=== PATIENT | male | born 1980 | race Caucasian/White ===

== ENCOUNTER 2018-04-03 13:05 | Emergency (ER) | payer OTHER ==
[2018-04-03 13:55] LABS: Basophils # (A) 0.1 k/uL (0-0.2); Basophils % (A) 1 %; Eosinophils # (A) 0.4 k/uL (0-0.7); Eosinophils % (A) 5 %; HCT 43.1 % (39.0-53.0); HGB 14.8 gm/dL (13.0-17.5); Lymphocytes # (A) 1.5 k/uL (1.0-4.8); Lymphocytes % (A) 18 %; MCH 30.9 pg (25.0-35.0); MCHC 34.2 g/dL (31.0-37.0); MCV 90.4 fL (80.0-100.0); Mean Platelet Volume 6.6; Monocytes # (A) 0.5 k/uL (0-1.0); Monocytes % (A) 6 %; Neutrophils # (A) 5.6 k/uL (1.3-7.7); Neutrophils % (A) 69 %; Platelet Count 232 k/uL (150-450); RBC 4.77 m/uL (4.30-5.90); RDW 13.2 % (11.5-15.5); WBC 8.2 k/uL (3.8-10.6)
[2018-04-03 14:11] LABS: ALT 35 U/L (21-72); AST 35 U/L (17-59); Albumin 4.7 g/dL (3.5-5.0); Alkaline Phosphatase 61 U/L (38-126); Anion Gap 14 mmol/L; Blood Urea Nitrogen 17 mg/dL (9-20); Calcium 9.5 mg/dL (8.4-10.2); Carbon Dioxide 18 mmol/L (22-30); Chloride 109 mmol/L (98-107); Glucose 109 mg/dL (74-99); Potassium 4.7 mmol/L (3.5-5.1); Sodium 141 mmol/L (137-145); Total Bilirubin 0.4 mg/dL (0.2-1.3); Total Protein 7.4 g/dL (6.3-8.2)
--- NOTE | 2018-04-03 15:02 | ED ---
General Adult HPI - General Chief complaint: Back Pain/Injury Stated complaint: poss kidney stones Time Seen by Provider: 04/03/18 14:05 Source: patient Mode of arrival: ambulatory Limitations: no limitations - History of Present Illness Initial comments: This is a 37-year-old male with past medical history of daily alcohol use and hypertension who presents today for chief complaint of left side pain. Patient states that this morning around 8:30-9 am he woke up going about his normal morning routine, after the shower he noticed a sharp pain in his left side, that radiates somewhat to the left side of his back. He states this pain sharp in nature and increases with movement and occasionally breathing. Patient does admit to having fallen the day before but he caught himself with his hands. Pt denies any trauma to the head or extremities, LOC or CP prior to fall he states it was mechanical from tripping. Patient denies any associated symptoms today including fever, chills, nausea, vomiting, diarrhea, chest pain, palpitations, and shortness of breath, any changes in bowel movements or stool or abdominal pain. Patient states that he has never experienced pain like this before. She presented to his family practitioner this morning Dr. Gross who thought the patient might have possible kidney stones and sent him to the emergency room for further workup. CBC and CMP were obtained and advanced triage. Patient's vital signs stable upon presentation. Patient denies hematuria, constipation or diarrhea, headaches or visual changes, or any other complaints. - Related Data Home Medications Medication Instructions Recorded Confirmed Atorvastatin [Lipitor] 20 mg PO HS 04/03/18 04/03/18 Meloxicam [Mobic] 15 mg PO DAILY PRN 04/03/18 04/03/18 Verapamil HCl [Verapamil ER] 180 mg PO HS 04/03/18 04/03/18 Zonisamide [Zonegran] 50 mg PO HS 04/03/18 04/03/18 Previous Rx's Medication Instructions Recorded Acetaminophen Tab [Tylenol Tab] 500 mg PO Q6H #20 tablet 04/03/18 Allergies Allergy/AdvReac Type Severity Reaction Status Date / Time No Known Allergies Allergy Verified 04/03/18 14:11 Review of Systems ROS Statement: Those systems with pertinent positive or pertinent negative responses have been documented in the HPI. ROS Other: All systems not noted in ROS Statement are negative. Constitutional: Denies: fever, chills Respiratory: Denies: dyspnea Cardiovascular: Denies: chest pain, palpitations, dyspnea on exertion Gastrointestinal: Reports: as per HPI. Denies: nausea, vomiting, diarrhea, constipation, hematemesis, melena Genitourinary: Reports: dysuria. Denies: urgency, frequency, hematuria Musculoskeletal: Reports: as per HPI Skin: Denies: rash Neurological: Denies: weakness, numbness, paresthesias, abnormal gait Past Medical History Past Medical History: Hypertension History of Any Multi-Drug Resistant Organisms: None Reported Past Surgical History: Orthopedic Surgery Additional Past Surgical History / Comment(s): left arm surgery Past Psychological History: Depression Smoking Status: Current some day smoker Past Alcohol Use History: Daily Past Drug Use History: None Reported General Exam - General Exam Comments Initial Comments: General: The patient is awake and alert, in no distress, and does not appear acutely ill. Eye: Pupils are equal, round and reactive to light, extra-ocular movements are intact. No nystagmus. There is normal conjunctiva bilaterally. No signs of icterus. Ears, nose, mouth and throat: There are moist mucous membranes and no oral lesions. Neck: The neck is supple, there is no tenderness or JVD. Cardiovascular: There is a regular rate and rhythm. No murmur, rub or gallop is appreciated. Breathe sounds are audible over the left lung. Equal respiratory expansion. Respiratory: Lungs are clear to auscultation, respirations are non-labored, breath sounds are equal. No wheezes, stridor, rales, or rhonchi. Gastrointestinal: Obese, abdomen. No rashes or lesions of the overlying skin. There is tenderness to palpation of the left flank near the rib cage. The the tenderness on palpation is reproducible, and the patient can localize the pain to specific region along the left flank and rib cage. The remaining 3 quadrants as well as the epigastric region are non-tender without masses or organomegaly noted. (-) rovsing, muphys, mcburneys, psoas, obturator signs. (-) CVA tenderness b/l. There is no rebound or guarding present. Bowel sounds are unremarkable. ] Neurological: A&O x 3. CN II-XII intact, There are no obvious motor or sensory deficits. Coordination appears grossly intact. Speech is normal. Skin: Skin is warm and dry and no rashes or lesions are noted. Psychiatric: Grumpy, appropriate mood & affect, normal judgment. Limitations: no limitations Course Vital Signs 04/03/18 04/03/18 04/03/18 13:19 16:24 17:54 Temperature 98.3 F 98.2 F 98.1 F Pulse Rate 101 H 88 72 Respiratory 18 16 16 Rate Blood Pressure 146/81 151/88 130/78 O2 Sat by Pulse 99 98 98 Oximetry Medical Decision Making - Medical Decision Making This is a 37-year-old male with past medical history of daily alcohol use and hypertension who presents today for chief complaint of left side pain. Patient states that this morning around 8:30-9 am he woke up going about his normal morning routine, after the shower he noticed a sharp pain in his left side, that radiates somewhat to the left side of his back. He states this pain sharp in nature and increases with movement and occasionally breathing. Patient does admit to having fallen the day before but he caught himself with his hands. Pt denies any trauma to the head or extremities, LOC or CP prior to fall he states it was mechanical from tripping. Patient denies any associated symptoms today including fever, chills, nausea, vomiting, diarrhea, chest pain, palpitations, and shortness of breath, any changes in bowel movements or stool or abdominal pain. Patient states that he has never experienced pain like this before. She presented to his family practitioner this morning Dr. Gross who thought the patient might have possible kidney stones and sent him to the emergency room for further workup. CBC and CMP were obtained and advanced triage. Patient's vital signs stable upon presentation. Patient denies hematuria, constipation or diarrhea, headaches or visual changes, or any other complaints. Physical exam is performed revealing Obese, abdomen. No rashes or lesions of the overlying skin of the abdomen. There is tenderness to palpation of the left flank and along the left lower rib cage. The pain is reproducible and the patient can localize the pain, pointing the same region along the left lower rib cage each time. The remaining 3 quadrants and the eipigastric region are non-tender without masses or organomegaly noted. (-) rovsing, muphys, mcburneys, psoas, obturator signs. (-) CVA tenderness. There is no rebound or guarding present. Bowel sounds are unremarkable. Cardiovascular and pulmonary exam reveal a regular rate and rhythm. No murmur, rub or gallop is appreciated. Lungs are clear to auscultation, respirations are non-labored, breath sounds are equal. No wheezes, stridor, rales, or rhonchi. Breathe sounds are audible over the left lung. Equal respiratory expansion. CBC and CMP returned within normal limits. UA returned within normal limits and EKG was obtained revealing normal sinus rhythm. Abdominal and chest x-ray returned without any acute abdominal or cardiopulmonary processes. He was given 650 mg of Tylenol by mouth for pain relief. Upon reevaluation he stated that the pain experienced some relief after the Tylenol. I discussed case in detail with who feels due to the negative workup and because the pain is reproducible and point localized the patient is stable for discharge, with close primary care follow-up. The patient was thoroughly educated on warning signs of acute abdomen and told to please return to the emergency department if his symptoms do worsen or change. Patient agreed with this plan. Patient was discharged with prescription for 500mg Tylenol for pain relief. She discharged in stable condition - Lab Data Result diagrams: 04/03/18 13:46 04/03/18 13:46 Lab Results 04/03/18 04/03/18 04/03/18 Range/Units 13:46 13:46 15:53 WBC 8.2 (3.8-10.6) k/uL RBC 4.77 (4.30-5.90) m/uL Hgb 14.8 (13.0-17.5) gm/dL Hct 43.1 (39.0-53.0) % MCV 90.4 (80.0-100.0) fL MCH 30.9 (25.0-35.0) pg MCHC 34.2 (31.0-37.0) g/dL RDW 13.2 (11.5-15.5) % Plt Count 232 (150-450) k/uL Neutrophils % 69 % Lymphocytes % 18 % Monocytes % 6 % Eosinophils % 5 % Basophils % 1 % Neutrophils # 5.6 (1.3-7.7) k/uL Lymphocytes # 1.5 (1.0-4.8) k/uL Monocytes # 0.5 (0-1.0) k/uL Eosinophils # 0.4 (0-0.7) k/uL Basophils # 0.1 (0-0.2) k/uL Sodium 141 (137-145) mmol/L Potassium 4.7 (3.5-5.1) mmol/L Chloride 109 H (98-107) mmol/L Carbon Dioxide 18 L (22-30) mmol/L Anion Gap 14 mmol/L BUN 17 (9-20) mg/dL Creatinine 0.86 (0.66-1.25) mg/dL Est GFR (CKD-EPI)AfAm >90 (>60 ml/min/1.73 sqM) Est GFR (CKD-EPI)NonAf >90 (>60 ml/min/1.73 sqM) Glucose 109 H (74-99) mg/dL Calcium 9.5 (8.4-10.2) mg/dL Total Bilirubin 0.4 (0.2-1.3) mg/dL AST 35 (17-59) U/L ALT 35 (21-72) U/L Alkaline Phosphatase 61 (38-126) U/L Total Protein 7.4 (6.3-8.2) g/dL Albumin 4.7 (3.5-5.0) g/dL Urine Color Yellow Urine Appearance Clear (Clear) Urine pH 5.5 (5.0-8.0) Ur Specific [place] 1.020 (1.001-1.035) Urine Protein Negative (Negative) Urine Glucose (UA) Negative (Negative) Urine Ketones Negative (Negative) Urine Blood Negative (Negative) Urine Nitrite Negative (Negative) Urine Bilirubin Negative (Negative) Urine Urobilinogen <2.0 (<2.0) mg/dL Ur Leukocyte Esterase Negative (Negative) Disposition Clinical Impression: Costal margin pain, Flank pain Disposition: HOME SELF-CARE Condition: Good Instructions: Costochondritis (ED), Flank Pain (ED) Additional Instructions: Please use medication as discussed. Please follow-up with family doctor in the next 2 days of symptoms have not improved. Please return to emergency room if the symptoms increase or worsen or for any other concerns. Prescriptions: Acetaminophen Tab [Tylenol Tab] 500 mg PO Q6H #20 tablet Is patient prescribed a controlled substance at d/c from ED?: No Referrals: Luan Gross MD [Primary Care Provider] - 1-2 days Time of Disposition: 17:37
--- NOTE | 2018-04-03 15:24 | XR ---
EXAMINATION TYPE: XR chest 2V DATE OF EXAM: 04/03/2018 COMPARISON: NONE HISTORY: Left-sided pain TECHNIQUE: Frontal and lateral views of the chest are obtained. FINDINGS: There is no focal air space opacity, pleural effusion, or pneumothorax seen. The cardiac silhouette size is within normal limits. The osseous structures are intact. Question spinal curvatu re. IMPRESSION: No acute cardiopulmonary process.
--- NOTE | 2018-04-03 15:25 | XR ---
Abdomen HISTORY: Left-sided pain View of the abdomen on 2 images There is a spinal curvature is suspected. There are air-fluid levels without bowel distention. Lung b ases are clear. No pneumoperitoneum. Probable phleboliths within the pelvis. IMPRESSION: Correlate for enteritis, ileus.
[2018-04-03 16:00] LABS: Appearance,Urine Clear (Clear); Bilirubin,Urine Negative (Negative); Blood,Urine Negative (Negative); Color,Urine Yellow; Glucose,Urine (UA) Negative (Negative); Ketones,Urine Negative (Negative); Leukocyte Esterase,Urine Negative (Negative); Nitrite,Urine Negative (Negative); PH, Urine 5.5 (5.0-8.0); Protein,Urine Negative (Negative); Urobilinogen,Urine <2.0 mg/dL (<2.0)
[2018-04-03] MEDS ORDERED: ACETAMINOPHEN TAB 325 MG TAB PO STA (16:20)
[2018-04-03 16:32] VITALS: RESP 16
[2018-04-03 17:55] VITALS: BP 130/78; PULSE 72; TEMP 98.1
== END 2018-04-03 17:54 | disposition home or self-care (01) ==
LOC: EC 13:05
DX: R07.81 Pleurodynia (principal); M54.9 Dorsalgia, unspecified; R10.9 Unspecified abdominal pain; I10 Essential (primary) hypertension; F17.200 Nicotine dependence, unspecified, uncomplicated; Z79.899 Other long term (current) drug therapy
CPT/HCPCS: 36415; 71046; 74018; 80053; 81003; 85025; 93005; 99283

== ENCOUNTER → 2018-04-04 | Outpatient (CLI) | payer OTHER ==
--- NOTE | 2018-04-04 16:03 | XR ---
EXAMINATION TYPE: XR ribs LT DATE OF EXAM: 04/04/2018 COMPARISON: 04/03/2018 HISTORY: Left lower rib pain with no known injury TECHNIQUE: Frontal and lateral views of the left ribs were obtained. FINDINGS: There is a nondisplaced fracture of the anterior lateral margin of the left 11th rib seen o n a single view only. Remaining left ribs appear unremarkable. No chronic healed callused fracture de formity seen. Visualized portion of the left lung appears well aerated. IMPRESSION: Acute nondisplaced fracture of the anterolateral margin of rib 11 on the left.
== END | disposition home or self-care (01) ==
LOC: RADXRMAIN 14:57
PROVIDERS: ATTEND Family Medicine
DX: S22.32XA Fracture of one rib, left side, initial encounter for closed fracture (principal)

== ENCOUNTER 2018-04-15 01:03 | Emergency (ER) | payer OTHER ==
[2018-04-15 01:18] VITALS: BP 133/78; PULSE 107; RESP 20; TEMP 98
--- NOTE | 2018-04-15 01:51 | ED ---
Alcohol HPI - General Chief Complaint: Alcohol Stated Complaint: ETOH Time Seen by Provider: 04/15/18 01:23 Source: patient, EMS Mode of arrival: EMS Limitations: no limitations - History of Present Illness Initial Comments: 37-year-old male patient presents to the emergency department today due to alcohol intoxication. Patient was found stumbling through the streets. He was picked up. Patient was unable to lie he was brought here. States that he feels fine and would like to be discharged. He denies any current physical symptoms or concerns. Does admit to drinking alcohol today. Denies any drug use. Denies any suicidal or homicidal ideation. Patient denies any recent rash , fever, chills, shortness breath, chest pain, abdominal pain, nausea, vomiting , diarrhea, constipation, back pain, numbness, tingling, dizziness, weakness, hematuria, dysuria, urinary urgency, urinary frequency, headache, visual changes , or any other complaints. - Related Data Home Medications Medication Instructions Recorded Confirmed Atorvastatin [Lipitor] 20 mg PO HS 04/03/18 04/03/18 Meloxicam [Mobic] 15 mg PO DAILY PRN 04/03/18 04/03/18 Verapamil HCl [Verapamil ER] 180 mg PO HS 04/03/18 04/03/18 Zonisamide [Zonegran] 50 mg PO HS 04/03/18 04/03/18 Previous Rx's Medication Instructions Recorded Acetaminophen Tab [Tylenol Tab] 500 mg PO Q6H #20 tablet 04/03/18 Allergies Allergy/AdvReac Type Severity Reaction Status Date / Time No Known Allergies Allergy Verified 04/03/18 14:11 Review of Systems ROS Statement: Those systems with pertinent positive or pertinent negative responses have been documented in the HPI. ROS Other: All systems not noted in ROS Statement are negative. Past Medical History Past Medical History: Hypertension History of Any Multi-Drug Resistant Organisms: None Reported Past Surgical History: Orthopedic Surgery Additional Past Surgical History / Comment(s): left arm surgery Past Psychological History: Depression Smoking Status: Current some day smoker Past Alcohol Use History: Daily Past Drug Use History: None Reported General Exam Limitations: no limitations General appearance: alert, in no apparent distress, other (This is a well- developed, well-nourished adult male patient in no acute distress. Does appear to be quite intoxicated. Temperature is 98.0F, pulse 107, respirations 20, blood pressure 133/78, pulse ox 96% on room air.) Eye exam: Present: normal appearance, PERRL, EOMI. Absent: scleral icterus, conjunctival injection, periorbital swelling ENT exam: Present: normal exam, normal oropharynx, mucous membranes moist Respiratory exam: Present: normal lung sounds bilaterally. Absent: respiratory distress, wheezes, rales, rhonchi, stridor Cardiovascular Exam: Present: regular rate, normal rhythm, normal heart sounds. Absent: systolic murmur, diastolic murmur, rubs, gallop, clicks GI/Abdominal exam: Present: soft, normal bowel sounds. Absent: distended, tenderness, guarding, rebound, rigid Neurological exam: Present: alert, oriented X3, CN II-XII intact Psychiatric exam: Present: normal affect, normal mood Skin exam: Present: warm, dry, intact, normal color. Absent: rash Course Vital Signs 04/15/18 01:08 Temperature 98.0 F Pulse Rate 107 H Respiratory 20 Rate Blood Pressure 133/78 O2 Sat by Pulse 96 Oximetry Medical Decision Making - Medical Decision Making 37-year-old male patient presents emergency department today due to alcohol intoxication. Patient was brought in by EMS because he was found stumbling on the streets. Patient denies any current physical symptoms or concerns. Patient did have cousin coming to pick him up. He'll be discharged home. He is instructed to avoid alcohol use in the future. Return parameters were discussed in detail. He verbalizes understanding and agrees with this plan. Disposition Clinical Impression: Alcohol intoxication Disposition: HOME SELF-CARE Condition: Good Instructions: Alcohol Intoxication (ED) Additional Instructions: Avoid drinking alcohol and the future. Follow-up with your primary care physician for recheck in 1-2 days. Return here immediately for any new, worsening, or concerning symptoms. Is patient prescribed a controlled substance at d/c from ED?: No Referrals: Luan Gross MD [Primary Care Provider] - 1-2 days Time of Disposition: 01:51
== END 2018-04-15 02:02 | disposition home or self-care (01) ==
LOC: EC 01:03
DX: F10.129 Alcohol abuse with intoxication, unspecified (principal); I10 Essential (primary) hypertension; F17.200 Nicotine dependence, unspecified, uncomplicated; Z79.899 Other long term (current) drug therapy
CPT/HCPCS: 99284

== ENCOUNTER → 2018-11-16 | Outpatient (CLI) | payer OTHER ==
--- NOTE | 2018-11-22 09:49 | P.ARTDOP ---
Arterial Doppler LOWER EXTREMITY ARTERIAL DOPPLER: DATE OF SERVICE: 11/16/2018 Reason for study: Cold left foot. Doppler waveforms: Multiphasic bilaterally throughout. Pulse volume recording: []. Pressure gradients: None. Ankle-brachial indices: Greater than 1 bilaterally. Toe pressures: 137 on the right, 132 on the left Impression: Normal study.
== END | disposition home or self-care (01) ==
LOC: RADUSWWP 13:18
PROVIDERS: ATTEND Family Medicine
DX: I73.89 Other specified peripheral vascular diseases (principal)
CPT/HCPCS: 93922; 93923

== ENCOUNTER → 2019-06-23 | Outpatient (CLI) | payer OTHER ==
--- NOTE | 2019-06-27 08:10 | PE ---
EXAMINATION TYPE: PET brain metabolic evaluation DATE OF EXAM: 06/23/2019 COMPARISON: CT brain May 19, 2016. MRI brain October 24, 2015. Outside MRI brain report May 14, 2019 HISTORY: Abnormal brain MRI. TECHNIQUE: Following the intravenous administration of 10.03 mCi of F-18 FDG, images are performed f rom the top of skull to the skull base . Images are reviewed on the computer in the coronal, axial, and sagittal planes. Reconstructed rotating images are created on independent workstation and review ed on the computer. A localization and attenuation correction CT is performed in conjunction with t he PET scan. SCAN: Initial Scan FINDINGS: BRAIN: There is lack of hypermetabolic uptake in the left cerebellar hemisphere corresponding to are a of atrophy described on outside MRI report and also seen on 2016 CT and MRI studies presumed relate d to congenital or remote insult. Remainder brain parenchyma shows symmetric satisfactory hypermetabo lic uptake. OTHER CT: Overall stable brain parenchyma findings from prior CT May 19, 2016. Occasional tiny muc ous retention cyst or polyp in the inferior left maxillary sinus is seen. There is mild mucosal thick ening inferiorly also present. Patchy opacification of the left ethmoid sinuses is also noted. IMPRESSION: As above.
== END | disposition home or self-care (01) ==
LOC: RADPETMAIN 10:15
PROVIDERS: ATTEND Psychiatry & Neurology Neurology
DX: R94.02 Abnormal brain scan (principal)
CPT/HCPCS: 78608; A9552

== ENCOUNTER → 2020-09-19 | Day surgery (SDC) | payer OTHER ==
[2020-09-18 10:26] VITALS: BMI 29.5
[~2020-09-19] MED LIST: LACTATED RINGERS 1,000 ML IV ONE; LACTATED RINGERS 1,000 ML IV SCH; LIDOCAINE 1% (10MG/ML) FOR IV START INTRADERMA ONE; PROPOFOL 10 MG/ML 20 ML VIAL IV ONE
[2020-09-19 07:23] VITALS: TEMP 97.9
--- NOTE | 2020-09-19 08:34 | P.OP ---
Date of Procedure: 09/19/20 Preoperative Diagnosis: Gi bleeding Postoperative Diagnosis: Gastritis Procedure(s) Performed: EGD with biopsy and colonoscopy Anesthesia: MAC Surgeon: Brandon Marcus Estimated Blood Loss (ml): 0 Condition: stable Disposition: same day Description of Procedure: Patient was Endo suite placed in left lateral decubitus position underwent sedation per department of anesthesia scope was passed from the oropharynx down the esophagus under direct visualization with ease. Passed through the stomach and the first and second portion of the duodenum were no abnormalities were noted it was withdrawn to the stomach retroflexed ample time was allowed for the stomach to insufflate and no significant hiatal hernia was noted all bodies and richardson of the stomach were inspected there was mild gastritis in the antrum biopsy of this was taken. Scope was withdrawn to the GE junction where there is no gross abnormalities were noted. The scope was then slowly withdrawn through the esophagus being sure to visualize the esophagus on the way out. Patient was then turned rectal exam was performed no gross abnormalities were noted scope was passed from the rectum to the cecum with ease the terminal ileum was intubated and no significant abnormalities are noted within the terminal ileum the scope was then slowly withdrawn being sure to visualize all richardson of the colon on the way out there was no abnormalities seen. Patient tolerated the procedure well no apparent complications
[2020-09-19 08:40] VITALS: BP 126/77; PULSE 70; RESP 16
== END | disposition home or self-care (01) ==
LOC: ORWHC2ENDO 07:03
PROVIDERS: ATTEND Student in an Organized Health Care Education/Training Program
DX: K29.51 Unspecified chronic gastritis with bleeding (principal); I10 Essential (primary) hypertension; F32.9 Major depressive disorder, single episode, unspecified; R56.9 Unspecified convulsions; Z87.891 Personal history of nicotine dependence; Z79.899 Other long term (current) drug therapy
CPT/HCPCS: 45378; 43239; 88305; 88342; J2704

== ENCOUNTER 2020-10-03 14:11 | Emergency (ER) | payer OTHER ==
[2020-10-03 14:26] VITALS: RESP 18; TEMP 99.4
[2020-10-03] MEDS: SODIUM CHLORIDE 0.9% 500 ML 500 ML IV ONE (14:52)
[2020-10-03] MEDS: KETOROLAC 15 MG/ML 1 ML VIAL IVP STA (14:53)
--- NOTE | 2020-10-03 15:01 | ED ---
General Adult HPI - General Chief complaint: Back Pain/Injury Stated complaint: BACK PAIN Time Seen by Provider: 10/03/20 14:17 Source: patient, RN notes reviewed, old records reviewed Mode of arrival: ambulatory Limitations: no limitations - History of Present Illness Initial comments: 39-year-old male presenting with chief complaint of low back pain and alcohol intoxication. Patient uncertain if he had fallen but states that his back pain has been present for the past 24 hours. He also complains of a headache. Uncertain if there was head trauma. He was transported by EMS. He admits to drinking liquor this morning. He denies abdominal pain nausea vomiting, denies chest pain, denies dyspnea, denies fever. Denies any numbness or tingling to his legs. Denies bowel or bladder incontinence. - Related Data Home Medications Medication Instructions Recorded Confirmed Atorvastatin [Lipitor] 20 mg PO HS 04/03/18 10/03/20 Escitalopram Oxalate [Lexapro] 10 mg PO DAILY 09/18/20 10/03/20 Rizatriptan Odt [Maxalt Print Color Operator] 10 mg PO DAILY PRN 10/03/20 10/03/20 Verapamil HCl [Verapamil ER] 120 mg PO HS 10/03/20 10/03/20 Zonisamide [Zonegran] 25 mg PO BID 10/03/20 10/03/20 Allergies Allergy/AdvReac Type Severity Reaction Status Date / Time No Known Allergies Allergy Verified 10/03/20 14:59 Review of Systems ROS Statement: Those systems with pertinent positive or pertinent negative responses have been documented in the HPI. ROS Other: All systems not noted in ROS Statement are negative. Past Medical History Past Medical History: GI Bleed, Hypertension, Seizure Disorder Additional Past Medical History / Comment(s): last seizure 1995 History of Any Multi-Drug Resistant Organisms: None Reported Past Surgical History: Orthopedic Surgery Additional Past Surgical History / Comment(s): left arm surgery Past Psychological History: Depression Smoking Status: Former smoker Past Alcohol Use History: Abuse, Daily Past Drug Use History: Marijuana General Exam Limitations: no limitations General appearance: alert, appears intoxicated Head exam: Present: atraumatic, normocephalic Eye exam: Present: normal appearance, PERRL ENT exam: Present: mucous membranes dry Neck exam: Present: normal inspection. Absent: tenderness, meningismus Respiratory exam: Present: normal lung sounds bilaterally. Absent: respiratory distress, wheezes Cardiovascular Exam: Present: regular rate, normal rhythm GI/Abdominal exam: Present: soft. Absent: distended, tenderness, guarding Extremities exam: Present: normal inspection, full ROM, normal capillary refill. Absent: pedal edema, calf tenderness Back exam: Present: tenderness, paraspinal tenderness (Lumbar) Neurological exam: Present: alert, oriented X3, CN II-XII intact. Absent: motor sensory deficit Psychiatric exam: Present: normal affect, normal mood Skin exam: Present: warm, dry, intact. Absent: cyanosis, diaphoretic Course Vital Signs 10/03/20 14:17 Temperature 99.4 F Pulse Rate 79 Respiratory 18 Rate Blood Pressure 159/115 O2 Sat by Pulse 99 Oximetry - Reevaluation(s) Reevaluation #1: 10/03/20 15:50 Patient reevaluated, he has ambulated to the bathroom. Medical Decision Making - Medical Decision Making 39-year-old male with back pain, alcohol intoxication. Head CT performed negative for intracranial hemorrhage, does show some chronic atrophy which is stable. Chest x-ray negative for acute cardio pulmonary disease no acute bony abdomen, x-rays of the lumbar spine negative for fracture subluxation. Patient has normal CBC, normal CMP, he is elevated alcohol level a t 220. Patient observed in the emergency department and ultimately discharged with family. - Lab Data Result diagrams: 10/03/20 14:52 10/03/20 14:52 Lab Results 10/03/20 10/03/20 Range/Units 14:52 14:52 WBC 8.2 (3.8-10.6) k/uL RBC 5.45 (4.30-5.90) m/uL Hgb 17.4 (13.0-17.5) gm/dL Hct 50.4 (39.0-53.0) % MCV 92.4 (80.0-100.0) fL MCH 31.9 (25.0-35.0) pg MCHC 34.6 (31.0-37.0) g/dL RDW 13.0 (11.5-15.5) % Plt Count 244 (150-450) k/uL MPV 6.6 Neutrophils % 67 % Lymphocytes % 22 % Monocytes % 4 % Eosinophils % 3 % Basophils % 2 % Neutrophils # 5.5 (1.3-7.7) k/uL Lymphocytes # 1.8 (1.0-4.8) k/uL Monocytes # 0.4 (0-1.0) k/uL Eosinophils # 0.3 (0-0.7) k/uL Basophils # 0.1 (0-0.2) k/uL Sodium 140 (137-145) mmol/L Potassium 5.6 H (3.5-5.1) mmol/L Chloride 107 (98-107) mmol/L Carbon Dioxide 23 (22-30) mmol/L Anion Gap 10 mmol/L BUN 17 (9-20) mg/dL Creatinine 0.84 (0.66-1.25) mg/dL Est GFR (CKD-EPI)AfAm >90 (>60 ml/min/1.73 sqM) Est GFR (CKD-EPI)NonAf >90 (>60 ml/min/1.73 sqM) Glucose 88 (74-99) mg/dL Calcium 8.9 (8.4-10.2) mg/dL Total Bilirubin 1.0 (0.2-1.3) mg/dL AST 57 (17-59) U/L ALT 41 (4-49) U/L Alkaline Phosphatase 59 (38-126) U/L Total Protein 8.2 (6.3-8.2) g/dL Albumin 5.0 (3.5-5.0) g/dL Serum Alcohol 221 H* mg/dL Disposition Clinical Impression: Mechanical back pain, Alcohol intoxication Disposition: HOME SELF-CARE Condition: Fair Instructions (If sedation given, give patient instructions): Acute Low Back Pain (ED), Alcohol Intoxication (ED) Is patient prescribed a controlled substance at d/c from ED?: No Referrals: Luan Gross MD [Primary Care Provider] - 1-2 days Time of Disposition: 15:52
[2020-10-03 15:02] LABS: Basophils # (A) 0.1 k/uL (0-0.2); Basophils % (A) 2 %; Eosinophils # (A) 0.3 k/uL (0-0.7); Eosinophils % (A) 3 %; HCT 50.4 % (39.0-53.0); HGB 17.4 gm/dL (13.0-17.5); Lymphocytes # (A) 1.8 k/uL (1.0-4.8); Lymphocytes % (A) 22 %; MCH 31.9 pg (25.0-35.0); MCHC 34.6 g/dL (31.0-37.0); MCV 92.4 fL (80.0-100.0); Mean Platelet Volume 6.6; Monocytes # (A) 0.4 k/uL (0-1.0); Monocytes % (A) 4 %; Neutrophils # (A) 5.5 k/uL (1.3-7.7); Neutrophils % (A) 67 %; Platelet Count 244 k/uL (150-450); RBC 5.45 m/uL (4.30-5.90); WBC 8.2 k/uL (3.8-10.6)
[2020-10-03 15:14] LABS: ALT 41 U/L (4-49); AST 57 U/L (17-59); African American GFR (CKD) >90 (>60 ml/min/1.73 sqM); Alkaline Phosphatase 59 U/L (38-126); Anion Gap 10 mmol/L; Blood Urea Nitrogen 17 mg/dL (9-20); Calcium 8.9 mg/dL (8.4-10.2); Carbon Dioxide 23 mmol/L (22-30); Chloride 107 mmol/L (98-107); Glucose 88 mg/dL (74-99); Non-African American GFR(CKD) >90 (>60 ml/min/1.73 sqM); Potassium 5.6 mmol/L (3.5-5.1); Sodium 140 mmol/L (137-145); Total Protein 8.2 g/dL (6.3-8.2)
[2020-10-03 15:15] LABS: Alcohol 221 mg/dL
--- NOTE | 2020-10-03 15:29 | XR ---
EXAMINATION TYPE: XR chest 2V DATE OF EXAM: 10/03/2020 COMPARISON: 04/03/2018 INDICATION: Fall, low back pain TECHNIQUE: Frontal and lateral views of the chest are obtained. FINDINGS: The heart size is normal. The pulmonary vasculature is normal. The lungs are clear. IMPRESSION: 1. No acute pulmonary process.
--- NOTE | 2020-10-03 15:30 | XR ---
EXAMINATION TYPE: XR lumbar spine 2 or 3V DATE OF EXAM: 10/03/2020 COMPARISON: None HISTORY: Fall low back pain TECHNIQUE: Three-view lumbar spine FINDINGS: There 5 lumbar-type vertebral bodies. There is attempted transitional T12 with rudimentary T12 ribs. Disc heights are preserved. Vertebral body heights are preserved. Alignment is normal. IMPRESSION: 1. Normal three-view lumbar spine.
--- NOTE | 2020-10-03 15:35 | CT ---
EXAMINATION TYPE: CT brain marcelinoine wo con DATE OF EXAM: 10/03/2020 COMPARISON: 06/23/2019 PET/CT HISTORY: Fall, ETOH. CT DLP: 1376 mGycm, Automated exposure control for dose reduction was used. CONTRAST: Patient injected with 0 mL of Isovue 300. CT of the brain is performed utilizing 3 mm thick sections through the posterior fossa and 3 mm thick sections through the remaining calvarium. Study is performed within 24 hours of arrival to the hospital. No abnormal hyperdensity is present to suggest an acute intracranial hemorrhage. There appears be an area of very low density within the left posterior fossa. This was present previo usly and appears stable. Previous this was described as atrophy. No subfalcine herniation is evident. No midline shift is evident. No acute infarcts are evident. Ventricles and sulci are appropriate for the patient age. There is mucosal thickening through ethmoid air cells. Remaining paranasal sinuses and mastoid air ce lls are clear. IMPRESSIONS: 1. Left posterior fossa cerebellar atrophy present previously, this appears stable. CT cervical spine. COMPARISON: None CT of the cervical spine is performed in the axial plane at 2 mm thick sections. Reconstructed image s in the coronal, and sagittal plane are reviewed on the computer. No acute fractures are evident. Vertebral body alignment is normal. Disc heights are preserved. Vertebral body heights are preserved. No spinal canal stenosis is evident. No neural foraminal stenosis is evident. IMPRESSIONS: 1. Normal CT cervical spine.
[2020-10-03 15:56] VITALS: BP 146/95; PULSE 80
== END 2020-10-03 16:16 | disposition home or self-care (01) ==
LOC: EC 14:11
DX: M54.5 Low back pain (principal); F10.129 Alcohol abuse with intoxication, unspecified; F32.9 Major depressive disorder, single episode, unspecified; G40.909 Epilepsy, unspecified, not intractable, without status epilepticus; Z79.899 Other long term (current) drug therapy; Z87.891 Personal history of nicotine dependence; Y90.7 Blood alcohol level of 200-239 mg/100 ml
CPT/HCPCS: 36415; 80053; 85025; 72100; 71046; 72125; 70450; 99284; 96374; 96361; G0480; J1885; 80320

== ENCOUNTER → 2024-01-27 | Outpatient (CLI) | payer OTHER ==
--- NOTE | 2024-01-27 15:42 | XR ---
EXAMINATION TYPE: XR chest 2V DATE OF EXAM: 01/27/2024 COMPARISON: 10/03/2020 HISTORY: Cough TECHNIQUE: Frontal and lateral views of the chest are obtained. FINDINGS: There is no focal air space opacity, pleural effusion, or pneumothorax seen. The cardiac silhouette size is within normal limits. The osseous structures are intact. IMPRESSION: No acute cardiopulmonary process.
== END | disposition home or self-care (01) ==
LOC: RADXRMAIN 12:30
PROVIDERS: ATTEND Family Medicine
DX: J32.9 Chronic sinusitis, unspecified (principal); R05.9 Cough, unspecified
CPT/HCPCS: 71046